=== PATIENT | female | born 1960 | race Caucasian/White ===

== ENCOUNTER → 2018-03-21 14:35 | Outpatient (CLI) | payer OTHER, SELFPAY ==
[2018-03-21 16:07] LABS: CRP < 2.90 mg/L (0.0-3.0)
[2018-03-23 16:10] LABS: Endomysial Antibody IgA Negative (Negative)
[2018-03-24 07:54] LABS: Immunoglobulin A 171 mg/dL (87-352); t-Transglutaminase IgA <2 U/mL (0-3)
== END ==
PROVIDERS: Visit Provider Internal Medicine Gastroenterology
DX: R19.7 Diarrhea, unspecified (principal)
CPT/HCPCS: 36415; 82784; 83516; 86140; 86255

== ENCOUNTER → 2023-10-16 | Outpatient (CLI) | payer MEDICARE, OTHER, SELFPAY ==
--- NOTE | 2023-10-16 14:24 | US_ITS ---
INDICATION: Postmenopausal bleeding -- Need before 10/23/23 EXAMINATION: Ultrasound US Pelvis Non OB Limited With Transvaginal Imaging TECHNIQUE: Transabdominal and transvaginal ultrasound was performed. Grayscale, spectral waveform, and color flow Doppler evaluation of the adnexa. COMPARISON: None. FINDINGS: UTERUS: 5.6 cm length. Fibroid anterior uterine body, 1.0 x 0.9 x 0.9 cm. ENDOMETRIUM: Not thickened. 0.3 cm. OVARIES: Not visualized. FREE FLUID: None. Bladder distended. Bladder volume 483 mL. US/Pelvic w/ Transvaginal IMPRESSION: Uterine fibroid. No endometrial thickening. Nonvisualized ovaries. Electronically Signed: Kim Zepeda MD at 7:57 EST ,
== END | disposition home or self-care (01) ==
LOC: US 14:21
PROVIDERS: PCP Family Medicine; Referring Provider Obstetrics & Gynecology; Visit Provider Obstetrics & Gynecology
DX: N95.0 Postmenopausal bleeding (principal)
CPT/HCPCS: 76830; 76856

== ENCOUNTER → 2023-10-23 | Outpatient (CLI) | payer MEDICARE, OTHER, SELFPAY ==
--- NOTE | 2023-10-23 15:00 | EMB_PTH ---
PATHOLOGY RESULTS PATIENT: KAREN LUQUE LOC: [facility] U#:[id number] AGE/SX: 63/F ROOM: RE10/23/[address]: Dr. Verito Slade MD : [id number] BED: DIS: 10/23/2023 SPEC #: [id number] RECD: 10/23/23 16:59 STATUS: VANESSA REMili #: [id number] BABS: 10/23/23 15:[address]: Verito Slade DEPT: SURGICAL PATHOLOGY RECD BY: Majo Trent ENTERED: 10/24/23 11:39 SP TYPE: ENDOM BX/C BATSHEVA DR: Dr. Virgilio Freeman MD Tissues: Endometrium, NOS Procedures: Surgery Specimen Level IV HEADER OPERATION: Endometrial biopsy PRE-OP DIAGNOSIS: Postmenopausal bleeding TISSUE SUBMITTED: Endometrial lining MICROSCOPIC DIAGNOSIS Endometrial biopsy: Scant minute fragments of glandular epithelium. See comment. JOHN:cinthya 10/25/2023 COMMENT Clinical correlation and appropriate follow up are necessary. MICROSCOPIC DESCRIPTION Slides are reviewed. GROSS DESCRIPTION Received is one container labeled with the patient's name and not further designated. The specimen consists of a scant amount of soft tissue. The specimen is totally submitted for cell block preparation. / JOHN:cinthya 10/24/2023 TC: Cannot code CPT: 39089
--- OUTSIDE RECORDS SUMMARY | 2023-10-23 17:25 | XMS RPT_ITS | CCD ---
Author Name Unknown Address [address] [place] [address] Organization [facility] Care Team Providers Care Merchandising Team Lead Name Role Phone John Ortez. Unavailable Unavailable Wood, Zafar C Unavailable Unavailable Wood, Zafar C Unavailable Unavailable Wood, Zafar C Unavailable Unavailable Wood, Zafar C Unavailable Unavailable John Ortez Unavailable Unavailable John Ortez Unavailable Unavailable John Ortez Unavailable Unavailable John Ortez Unavailable Unavailable John Ortez Unavailable Unavailable John Ortez Unavailable Unavailable Thomae, Carlos Manuel R Unavailable Unavailable Thomcarlos, Carlos Manuel R Unavailable Unavailable John Ortez Unavailable Unavailable Kannan, Toya Unavailable Unavailable John Ortez Unavailable Unavailable Kannan, Toya Unavailable Unavailable John Ortez Unavailable Unavailable Wietecha Abhishek G Unavailable Unavailable Wietecha, Abhishek G Unavailable Unavailable John Ortez Unavailable Unavailable WiAbhishek sr G Unavailable Unavailable WiSha srin G Unavailable Unavailable John Ortez Unavailable Unavailable Wietecha Abhishek G Unavailable Unavailable Wietecha, Abhishek G Unavailable Unavailable John Ortez Unavailable Unavailable Wietecha, Abhishek G Unavailable Unavailable Wietecha, Abhishek G Unavailable Unavailable John Ortez Unavailable Unavailable Wietecha, Abhishek G Unavailable Unavailable Wietecha, Abhishek G Unavailable Unavailable John Ortez Unavailable Unavailable DARMMEHNAZ JORDAN Attending Unavailable SELF, SELF Referring Unavailable DARMMEHNAZ JORDAN M Attending Unavailable SELF, SELF Referring Unavailable JOHN ORTEZ Attending Unavailable JOHN ORTEZ Referring Unavailable DARMMEHNAZ JORDAN Attending Unavailable SELF, SELF Referring Unavailable Abhishek Lowe Unavailable Unavailable Update Needed Unavailable Unavailable Marino Benson Unavailable Unavailable John Ortez Primary Care Provider John Ortez MD Primary Care Provider Virgilio Wilkinson Unavailable Unavailable Unavailable Virgilio Wilkinson MD Primary Care Provider JOHN ORTEZ Primary Care Unavailable MARCO MONTANO Attending Unavailable John Ortez MD Primary Care Provider ROSALBA GAVIN Attending Unavailable VIRGILIO WILKINSON Primary Care Unavailable VIRGILIO WILKINSON Attending Unavailable VIRGILIO WILKINSON Primary Care Unavailable John Otrez MD Primary Care Provider JOHN ORTEZ Referring Unavailable JOHN ORTEZ Primary Care Unavailable MEHNAZ MCMAHON Attending Unavailable VIRGILIO WILKINSON Primary Care Unavailable VIRGILIO WILKINSON Primary Care Unavailable VIRGILIO WILKINSON Primary Care Unavailable VIRGILIO WILKINSON Primary Care Unavailable Allergies Allergy Classification Reported Allergen(s) Allergy Type Date of Onset Reaction(s) Facility (13 sources) topiramate; Translations: [Topamax] Drug Allergy 5 Nausea and Vomiting, Unknown [facility] (12 sources) Amitriptyline; Translations: [amitriptyline] Drug Allergy 7 Dizziness, Dizzy/Vertigo [facility] Repository (2 sources) topiramate; Translations: [Topamax] Drug Allergy [facility] Rep[facility] (1 source) No Known Medication Allergies; Translations: [No Known Medication Allergies] Propensity to adverse reactions to drug (disorder) [facility] (10 sources) Bacitracin; Translations: [bacitracin] Drug Allergy [address] [facility] (5 sources) fexofenadine; Translations: [FEXOFENADINE] Drug Allergy 1 Dizzy/Vertigo, Dizziness [facility] (9 sources) pregabalin; Translations: [Lyrica CAPS] Drug Allergy [address] [facility] (10 sources) SUMAtriptan; Translations: [Imitrex] Drug Allergy 0 Rash, Other, Nausea Only, Palpitations [facility] (2 sources) Neomycin-Bacitr acin Zn-Polymyx Propensity to adverse reactions to drug 8 [employer] [facility] (4 sources) Bacitracin / Neomycin / Polymyxin B; Translations: [Neosporin OINT] Drug Allergy [facility] Work Phone: (3 sources) Bacitracin / Polymyxin B; Translations: [BACITRACIN ZINC-POLYMYXIN B] Drug Allergy [address] [facility] Work Phone: (1 source) Pregabalin Propensity to adverse reactions to drug 1 [employer] [facility] (1 source) Topiramate Propensity to adverse reactions to drug [address] [facility] Medications Current Medications Medication Drug Class(es) Dates Sig (Normalized) Sig (Original) Alpha-Lipoic Acid (LIPOIC ACID PO) (1 source) Alpha-Lipoic Aci d (LIPOIC ACID PO) Take by mouth. 0 Active amitriptyline hydrochloride 50 mg oral tablet (3 sources) Tricyclic Antidepressant Start: 08-13-2015 amitriptyline (ELAVIL) 50 MG tablet ascorbic acid 500 mg oral tablet (8 sources) Vitamin C Start: 11-02-2019 take 1 tablet by mouth once daily ascorbic acid (Vitamin C) 500 mg tablet Take 1 tablet (500 mg) by mouth once daily. 0 11/02/2019 Active Completed/Discontinued Medications Medication Drug Class(es) Dates Sig (Normalized) Sig (Original) calcium carbonate 1500 mg / cholecalciferol 200 unt oral tablet (5 sources) Vitamin D Start: 11-02-2019 End: 04-10-2023 take 1 tablet by mouth once daily calcium carbonate-vitamin D3 600 mg-5 mcg (200 unit) tablet Take 1 tablet by mouth once daily. 0 11/02/2019 04/10/2023 Discontinued (Therapy completed) ketorolac tromethamine 10 mg oral tablet (1 source) Nonsteroidal Anti-inflammatory Drug, Cyclooxygenase Inhibitor Start: 09-10-2019 take 1 tablet by mouth once daily as needed for pain Ketorolac Tromethamine 10 MG Oral Tablet TAKE 1 TAB DAILY NEEDED FOR PAIN Quantity: 12 Refills: 2 Marino Benson MD Start : 10-Sep-2019 Active meclizine hydrochloride 12.5 mg oral tablet (4 sources) Antiemetic Start: 12-24-2021 take 1 tablet by mouth three times daily as needed Meclizine HCl - 12.5 MG Oral Tablet TAKE 1 TABLET 3 TIMES DAILY NEEDED. Quantity: 30 Refills: 2 Ordered: 24-Dec-2021 Virgilio Wilkinson MD Start : 24-Dec-2021 Active pregabalin 50 mg oral capsule (1 source) take 1 capsule by mouth three times daily Pregabalin 50 MG Oral Capsule TAKE 1 CAPSULE 3 times daily Quantity: 90 Refills: 2 Marino Benson MD Active SUMAtriptan 50 mg oral tablet (1 source) Serotonin-1b and Serotonin-1d Receptor Agonist take 1 tablet by mouth every two hours SUMAtriptan Succinate 50 MG Oral Tablet TAKE 1 TABLET FOR MIGRAINE RELIEF. MAY REPEAT EVERY 2 HOURS. MAX 200MG/DAY. Quantity: 12 Refills: 0 Active Problems Active Problems Problem Classification Problem Date Documented Da te Episodic/Chronic Conditions associated with dizziness or vertigo (5 sources) Benign paroxysmal positional vertigo; Translations: [Benign paroxysmal positional vertigo] Onset: 05-12-2023 05-12-2023 Episodic Headache; including migraine (18 sources) Migraine; Translations: [Chronic intractable migraine without aura] Onset: 07-31-2015 08-02-2017 Chronic Headache; including migraine (9 sources) Cervicogenic headache; Translations: [Headache] Episodic Nutritional deficiencies (3 sources) Vitamin D deficiency; Translations: [Vitamin D deficiency, unspecified] Onset: 07-28-2023 07-21-2023 Chronic Other connective tissue disease (5 sources) Myofascial pain; Translations: [Myalgia and myositis, unspecified] Episodic Other connective tissue disease (5 sources) Fibromyalgia; Translations: [Myalgia and myositis, unspecified] Onset: 05-12-2023 05-12-2023 Episodic Other connective tissue disease (2 sources) Muscle pain; Translations: [Myalgia, unspecified site] 04-10-2023 Episodic Other connective tissue disease (2 sources) Myalgia, unspecified site; Translations: [Myalgia, unspecified site] Onset: 04-10-2023 Episodic Other ear and sense organ disorders (2 sources) Impacted cerumen, right ear; Translations: [Impacted cerumen, right ear] Onset: 05-16-2023 Episodic Other ear and sense organ disorders (1 source) Impacted cerumen in right ear; Translations: [Impacted cerumen, right ear] 05-16-2023 Episodic Other nervous system disorders (2 sources) Dysesthesia; Translations: [Other disturbances of skin sensation] Onset: 05-24-2023 05-24-2023 Episodic Other nervous system disorders (4 sources) Other disturbances of skin sensation; Translations: [Other disturbances of skin sensation] Onset: 05-24-2023 Episodic Other upper respiratory disease (2 sources) Other specified disorders of nose and nasal sinuses; Translations: [Other specified disorders of nose and nasal sinuses] Onset: 05-16-2023 Episodic Other upper respiratory disease (1 source) Nasal discharge; Translations: [Other specified disorders of nose and nasal sinuses] 05-16-2023 Episodic Poisoning by other medications and drugs (7 sources) Poisoning by vitamin D; Translations: [Poisoning by vitamins, accidental (unintentional), initial encounter] Onset: 08-26-2021 Episodic Residual codes; unclassified (5 sources) Obstructive sleep apnea of adult; Translations: [Obstructive sleep apnea (adult)(pediatric)] Onset: 05-12-2023 05-12-2023 Chronic Spondylosis; intervertebral disc disorders; other back problems (4 sources) Neck pain; Translations: [Cervicalgia] Episodic Thyroid disorders (12 sources) Hypothyroidism; Translations: [Acquired hypothyroidism] Onset: 07-19-2018 Chronic Unclassified (4 sources) Thyroid Problem; Translations: [Thyroid Problem] Onset: 12-06-2018 Unclassified (2 sources) New Patient; Translations: [New Patient] Onset: 07-19-2018 Past or Other Problems Problem Classification Problem Date Documented Da te Episodic/Chronic Diabetes mellitus without complication (5 sources) Hyperglycemia; Translations: [Hyperglycemia, unspecified] Onset: 04-10-2023 04-10-2023 Episodic Genitourinary symptoms and ill-defined conditions (8 sources) Lower urinary tract symptoms; Translations: [Unspecified symptoms and signs involving the genitourinary system] Onset: 04-10-2023 04-10-2023 Episodic Other bone disease and musculoskeletal deformities (3 sources) Postmenopausal osteopenia; Translations: [Other specified disorders of bone density and structure, unspecified site] Onset: 07-19-2018 07-19-2018 Episodic Other gastrointestinal disorders (2 sources) Diarrhea; Translations: [Diarrhea] Onset: 02-16-2018 Episodic Sprains and strains (3 sources) Strain of rotator cuff capsule; Translations: [Strain of rotator cuff of shoulder] Onset: 11-06-2015 11-06-2015 Episodic Unclassified (2 sources) Onset: 04-10-2023 04-10-2023 Results Test Name Value Interpretation Reference Range Facil ity Vital Signs Date Time Vital Sign Value Performing Clinician Facility 07-21-2023 13:30-0400 Body height 160 cm Mehnaz Mcmahon MD Work Phone: [facility] 07-21-2023 13:30-0400 Body mass index (BMI) [Ratio] 22.72 kg/m2 Mehnaz Mcmahon MD Work Phone: [facility] 07-21-2023 13:30-0400 Body weight 58.15 kg Mehnaz Mcmahon MD Work Phone: [facility] [employer] [facility] 07-21-2023 13:30-0400 Diastolic blood pressure 64 mm[Hg] Mehnaz Mcmahon MD Work Phone: [facility] [employer] [facility] 07-21-2023 13:30-0400 Heart rate 70 /min Mehnaz Mcmahon MD Work Phone: [facility] 07-21-2023 13:30-0400 Respiratory rate 16 /min Mehnaz Mcmahon MD Work Phone: [facility] [employer] [facility] 07-21-2023 13:30-0400 Systolic blood pressure 120 mm[Hg] Mehnaz Mcmahon MD Work Phone: [facility] 05-24-2023 08:33-0400 Body mass index (BMI) [Ratio] 21.63 kg/m2 Virgilio Wilkinson MD Work Phone: [facility] 05-24-2023 08:33-0400 Body weight 57.15 kg Virgilio Wilkinson MD Work Phone: [facility] 05-24-2023 08:33-0400 Diastolic blood pressure 74 mm[Hg] Virgilio Wilkinson MD Work Phone: [facility] 05-24-2023 08:33-0400 Heart rate 73 /min Virgilio Wilkinson MD Work Phone: [facility] 05-24-2023 08:33-0400 SaO2% (BldA) [Mass fraction] 97 % Virgilio Wilkinson MD Work Phone: [facility] 05-24-2023 08:33-0400 Systolic blood pressure 122 mm[Hg] Virgilio Wilkinson MD Work Phone: [facility] 05-16-2023 14:54-0400 Body height 160 cm Marco Montano MD Work Phone: [facility] 05-16-2023 14:54-0400 Body mass index (BMI) [Ratio] 22.5 kg/m2 Marco Montano MD Work Phone: [facility] 05-16-2023 14:54-0400 Body temperature 98.2 [degF] Marco Montano MD Work Phone: [facility] 05-16-2023 14:54-0400 Body weight 57.61 kg Marco Montano MD Work Phone: [facility] 04-10-2023 15:03-0400 Body height 162.6 cm Rosalba Stentz PA-C Work Phone: [facility] 04-10-2023 15:03-0400 Body mass index (BMI) [Ratio] 22.31 kg/m2 Rosalba Stentz PA-C Work Phone: [facility] 04-10-2023 15:03-0400 Body temperature 98.4 [degF] Rosalba Stentz PA-C Work Phone: [facility] 04-10-2023 15:03-0400 Body weight 58.97 kg Rosalba Stentz PA-C Work Phone: [facility] 04-10-2023 15:03-0400 Diastolic blood pressure 68 mm[Hg] Rosalba Stentz PA-C Work Phone: [facility] 04-10-2023 15:03-0400 Heart rate 63 /min Rosalba Stentz PA-C Work Phone: [facility] 04-10-2023 15:03-0400 Systolic blood pressure 124 mm[Hg] Rosalba Stentz PA-C Work Phone: [facility] 01-07-2022 08:04-0400 Body height 160 cm Mehnaz Mcmahon MD Work Phone: [facility] 01-07-2022 08:04-0400 Body mass index (BMI) [Ratio] 23.96 kg/m2 Mehnaz Mcmahon MD Work Phone: [facility] 01-07-2022 08:04-0400 Body weight 61.33 kg Mehnaz Mcmahon MD Work Phone: [facility] 01-07-2022 08:04-0400 Diastolic blood pressure 64 mm[Hg] Mehnaz Mcmahon MD Work Phone: [facility] 01-07-2022 08:04-0400 Heart rate 70 /min Mehnaz Mcmahon MD Work Phone: [facility] 01-07-2022 08:04-0400 Respiratory rate 15 /min Mehnaz Mcmahon MD Work Phone: [facility] 01-07-2022 08:04-0400 Systolic blood pressure 133 mm[Hg] Mehnaz Mcmahon MD Work Phone: [facility] 09-10-2019 16:28-0500 BMI (Body Mass Index) 23.91 kg/m2 [facility]ino [facility]par [facility] Work Phone: 09-10-2019 16:28-0500 Body weight 61.24 kg Marino Cunhaumbrajan [facility] Work Phone: 09-10-2019 16:28-0500 BP Diastolic 82 mm[Hg] Marino Zumbar [facility] Work Phone: 09-10-2019 16:28-0500 BP Systolic 144 mm[Hg] Marino Benson [facility] Work Phone: 09-10-2019 16:28-0500 BSA (Body Surface Area) 1.64 m2 Marino Cunhaumbar [facility] Work Phone: 09-10-2019 16:28-0500 Height 160.02 cm Marino Benson [facility] Work Phone: 09-10-2019 16:28-0500 Pulse (Heart Rate) 71 /min Marino Cunhaumbar [facility] Work Phone: 09-10-2019 16:28-0500 Respiratory Rate 16 /min Marino Cunhaumbar [facility] Work Phone: Encounters Encounter Date Encounter Type Care Provider Facility Start: 07-28-2023 End: 07-29-[address] [facility] Start: 07-21-2023 ambulatory JOHN House [facility] Start: 07-21-2023 End: 07-21-2023 Office outpatient visit 25 minutes Mehnaz Mcmahon MD Work Phone: [facility] Procedures Date Procedure Procedure Detail Performing Clinician Start: 07-28-2023 Thyrotropin [Units/volume] in Serum or Plasma VIRGILIO WILKINSON Start: 07-28-2023 VITAMIN D 25-HYDROXY,TOTAL VIRGILIO WILKINSON Start: 07-21-2023 Follow-up visit Follow-up MEHNAZ MCMAHON Start: 07-04-2023 Thyrotropin [Units/volume] in Serum or Plasma VIRGILIO WILKINSON Start: 07-04-2023 THYROXINE, FREE VIRGILIO WILKINSON Start: 07-04-2023 TRIIODOTHYRONINE, FREE VIRGILIO WILKINSON Start: 05-24-2023 CBC W Auto Differential panel - Blood VIRGILIO WILKINSON Start: 05-24-2023 Comprehensive metabolic 2000 panel - Serum or Plasma VIRGILIO WILKINSON Start: 05-24-2023 Cyanocobalamin vitamin b-12 VIRGILIO WILKINSON Start: 05-24-2023 Magnesium [Mass/volume] in Serum or Plasma VIRGILIO WILKINSON Start: 05-08-2023 Thyrotropin [Units/volume] in Serum or Plasma Virgilio Wilkinson MD Work Phone: Start: 04-11-2023 Hemoglobin A1c/Hemoglobin.total in Blood VIRGILIO WILKINSON Start: 04-11-2023 INSULIN, FASTING VIRGILIO WILKINSON Start: 04-10-2023 Urnls dip stick/tablet rgnt auto w/o microscopy Rosalba Stentz PA-C Work Phone: Start: 03-27-2023 Thyrotropin [Units/volume] in Serum or Plasma Rosalba Stentz PA-C Work Phone: Start: 08-05-2022 Lipid 1996 panel - Serum or Plasma Justi n Stentmarcia PA-C Work Phone: Colonoscopy Virgilio Wilkinson Work Phone: Esophagogastroduodenoscopy Z achary Zumbar Jaw and temporomandi bular joint operations Marino Zumbar Laparoscopy Marino Zumbar Operative procedure on foot Marino Zumbar Tonsillectomy Marino Zumbar Plan of Treatment Date Care Activity Detail Author Start: 08-05-2027 Lipid panel Lipid Panel [facility] Start: 05-08-2024 Thyroid stimulating hormone measurement TSH Level [facility] Start: 04-11-2024 Diabetes mellitus screening Diabetes Screening [facility] Start: 04-11-2024 Hemoglobin A1c measurement Diabetes: Hemoglobin A1C [facility] Start: 03-27-2024 Thyroid stimulating hormone measurement TSH Level [facility] Start: 11-14-2023 Diabetes mellitus screening Diabetes Screening [facility] Start: 07-17-2023 End: 07-17-2023 Patient encounter procedure 07/17/2023 8:00 AM EDT Office Visit [facility] [address] [place] [address] Marco Montano MD [address] [place] [id number] [facility] Start: 05-26-2023 Influenza vaccination [facility] Start: 05-24-2023 End: 05-24-2024 CBC W Auto Differential panel - Blood CBC and Auto Differential Lab Routine Dysesthesia affecting both sides of body Expected: 05/24/2023 (Approximate), Expires: 05/24/2024 [facility] Service Area Work Phone: Immunizations Immunization Date Immunization Notes Care Provider Fa cili 08-05-2019 influenza virus vaccine, unspecified formulation Mehnaz Mcmahon MD Work Phone: [facility] Payers Date Payer Category Payer Medicare [id number] 2023 Medicare [id number] 2023 Unknown [id number] 2018 Unknown [id number] 2017 Unknown 2007 Unknown [employer] UPER[employer] PPO [id number] 2007-Present [id number] 1958 Unknown [id number] 2.16.840.1.956315.3.579.2. 1958 Unknown [id number] 2.16.840.1.825225.3.579.2 1958 Unknown [id number] 2.16.840.1.373673.3.579.2 1958 Unknown [id number] 2.16.840.1.037428.3.579.2. 1958 Unknown [id number] 2.16.840.1.954827.3.579.2. 1958 Unknown [id number] 2.16.840.1.937673.3.579.2.7 1958 Unknown [id number] 2.16.840.1.816782.3.579.2. 1958 Unknown [id number] 2.16.840.1.857654.3.579.2. 1958 Unknown [id number] 2.16.840.1.093497.3.579.2. 1958 Unknown [id number] 2.16.840.1.579577.3.579.2. 1958 Unknown [id number] 2.16.840.1.461992.3.579.2.98 1958 Unknown [id number] 2.16.840.1.414083.3.579.2.903 1958 Unknown [id number] 2.16.840.1.400970.3.579.2.1243 1958 Unknown [id number] 2.16.840.1.868035.3.579.2.1243 1958 Unknown [id number] 2.16.840.1.583275.3.579.2. 1958 Unknown [id number] 2.16.840.1.000705.3.579.2.1244 1958 Unknown [id number] 2.16.840.1.866021.3.579.2.1244 1958 Unknown [id number] 2.16.840.1.430040.3.579.2.1244 1958 Unknown [id number] [id number]44 Unknown [id number] Social History Date Type Detail Facility Start: 11-06-2015 End: 07-21-2023 Tobacco smoking status TXIS Never smoker [facility] Start: 1960 Sex Assigned At Not on file [facility] Start: 11-06-2015 End: 07-21-2023 Alcohol intake Current non-drinker of alcohol (finding) [facility] Start: 07-25-2017 End: 07-21-2023 Tobacco use and exposure Smokeless tobacco non-user [facility] Start: 01-07-2022 End: 04-10-2023 Never a smoker Never a smoker -[facility] Work Phone: Start: 01-07-2022 End: 04-10-2023 Tobacco use panel [facility] Work Phone: Start: 03-31-2023 End: 04-10-2023 Exposure to SARS-CoV-2 (event) Not sure [facility] Start: 05-24-2023 Alcohol intake Lifetime non-d oliva (finding) [facility] Work Phone: Start: 07-04-2017 Gender identity Identifies as female gender (finding) [facility] NEGATED: Highlighted row - - [facility] Work Phone: Functional Status Date Assessment Result Facility NEGATED: Highlighted row Functional performance Functional status health issues are not documented [facility] Work Phone: Mental Status Date Assessment Result Facility NEGATED: Highlighted row Cognitive function [Interpretation] Cognitive status health issues are not documented [facility] Work Phone: Clinical Notes 01-07-2022 to 07-21-2023 Dennyreji Raza - 07/21/2023 1:30 PM Bri Mcmahon MD - 07/21/2023 1:30 PM Nate Wilkinson MD - 05/24/2023 8:30 AM Marco Verde MD - 05/16/2023 3:52 PM EDT Note Date & Type Note Facility 07-21-2023 History of Present illness Narrative Nurse Note: Review of Systems Constitutional: Positive for fatigue (SAME). Negative for diaphoresis and unexpected weight change. HENT: Negative for trouble swallowing and voice change. Eyes: Negative for pain and visual disturbance. Respiratory: Negative for cough and shortness of breath. Cardiovascular: Positive for palpitations (same). Negative for chest pain and leg swelling. Gastrointestinal: Negative for constipation, diarrhea, nausea and vomiting. Endocrine: Positive for cold intolerance and heat intolerance. Negative for polydipsia and polyuria. Musculoskeletal: Negative for back pain and neck pain. Neurological: Positive for numbness. Negative for tremors. Psychiatric/Behavioral: Negative for sleep disturbance. The patient is nervous/anxious. Nursing Assessment: Physical Exam Subjective History of Present Illness Hypothyroidism- This is a follow up visit to the office. She had been taking desiccated thyroid hormone since 2001. She previously took Kathleen thyroid 60 mg daily. She has never tried levothyroxine, we moved her to levothyroxine. We eventually changed to Tirosint, she states she feels well on the agent. Her about a year ago, eventually she discontinued levothyroxine over the summer, TSH elevated towards 8-11, and she felt subjective worsening. She restarted Tirosint through another provider, has been increasing the doses every 3-4 weeks, last dose increase was from 75 mcg daily to 88 mcg daily, she is been on that dose for the past 4 weeks with subjective improvement, TSH = 2.14. Osteopenia/vitamin D toxicity- She is taking 4000 units of Vitamin D twice daily. No history of parental hip fracture. Her mother does have osteopenia. Previous Dexa scan was performed in May 2017 showing a -1.1 T-score. Previous vitamin D level 34 ng/mL. last 25-hydroxy vitamin D level elevated at 107 ng/mL, we had her discontinue vitamin D, it appears she is still taking 2000 international units daily, 25-hydroxy vitamin D level has decreased to 90 ng/mL. Concern for type 2 diabetes: Her main concern today is possibility of type 2 diabetes. She did go through a issue where she had polyuria/polydipsia. Hemoglobin A1c was 5.6% with a fasting blood sugar of 91 mg/dL. No family history Objective Review of Systems Vitals: Blood pressure 120/64, pulse 70, resp. rate 16, height 1.6 m (5' 2.99 ), weight 58.2 kg (128 lb 3.2 oz). Nurse Note: Review of Systems Constitutional: Negative for chills, fatigue, fever and unexpected weight change. HENT: No difficulty swallowing No change in voice Respiratory: Negative for cough, shortness of breath and wheezing. Cardiovascular: Negative for chest pain and palpitations. Gastrointestinal: Positive for diarrhea. Negative for constipation, nausea and vomiting. Musculoskeletal: Positive for neck pain. Neurological: Negative for tremors. Psychiatric/Behavioral: Negative for sleep disturbance. The patient is nervous/anxious. Nursing Assessment: (Previous physical exam; not repeated due to telephone follow-up) Physical Exam Constitutional: General: She is not in acute distress. Appearance: She is not diaphoretic. HENT: Head: Normocephalic. Pulmonary: Effort: Pulmonary effort is normal. No respiratory distress. Breath sounds: No wheezing. Neurological: Mental Status: She is alert and oriented to person, place, and time. Psychiatric: Judgment: Judgment normal. Neurological Exam Mental Status Alert. Oriented to person, place, and time. Assessment and Plan Hypothyroidism- we will continue Tirosint to 88 g daily and reassess in 2 weeks, as that will be a full 6 weeks on the 88 mcg of Tirosint. We will telephone initial results. Vitamin D toxicity vitamin-D level was exceedingly high at 90 ng/mL, and she is still taking vitamin-D, I am quite concerned about the possibility of vitamin-D toxicity/poisoning. Would redraw twenty-five hydroxy vitamin-D with next blood draw and telephone with initial results. Have advised he discontinue vitamin-D for the near term. Concern for type 2 diabetes: Discussed with patient that she does not have markers for insulin resistance, no acanthosis, no family history of significant diabetes, at this point I doubt she has significant risk factors for future diabetes, she definitely does not have diabetes now. Patient reassured. documented in this encounter [facility] 05-24-2023 History of Present illness Narrative Subjective Patient ID: Cecelia Sofia is a 63 y.o. female who presents for evaluate (Pain and severe cramping in legs, burning under arms and chest, discuss A1c and Insulin labs). HPI Leg cramps in shins not calves. Whole leg hurts including feet. No numbness but some tingling and buzzing. About 3 weeks ago. Wonders if due to house spray for bugs. She waited for an hour afterwards. She got intense burning inside afterwards. Still has some of that with some night sweats. Was SOB first week with nausea and diarrhea. Heart pounding. No wheezing or fever or chills Still some quivering inside PND was worse than usuall Had sciatica in 2011 that was different Able to sleep with flexeril at hs. But a cramp can still wake her None for a few days Gabapentin in the past for symptoms after a concussion in 2014. Still has issues from that including noise and light sensitivity. When active she will get fatigued and nauseated No focal weakness or numbness. Recent thyroid profile looks good. She did recently start on the Levothyroxine. Discussed A1C of 5.6 and Average glucose of 114 from that. Also insulin level of 5. All good. Just needs to watch is simple carbs, Review of Systems Objective BP 122/74 (BP Location: Left arm, Patient Position: Sitting) Pulse 73 Wt 57.2 kg (126 lb) SpO2 97% BMI 21.63 kg/m Physical Exam Vitals reviewed. Constitutional: General: She is not in acute distress. Appearance: Normal appearance. HENT: Head: Normocephalic. Right Ear: Tympanic membrane normal. Left Ear: Tympanic membrane normal. Nose: Nose normal. Mouth/Throat: Pharynx: Oropharynx is clear. Eyes: Extraocular Movements: Extraocular movements intact. Conjunctiva/sclera: Conjunctivae normal. Pupils: Pupils are equal, round, and reactive to light. Neck: Vascular: No carotid bruit. Cardiovascular: Rate and Rhythm: Normal rate and regular rhythm. Pulses: Normal pulses. Heart sounds: Normal heart sounds. No murmur heard. Pulmonary: Effort: Pulmonary effort is normal. No respiratory distress. Breath sounds: Normal breath sounds. Abdominal: General: Abdomen is flat. Bowel sounds are normal. There is no distension. Palpations: Abdomen is soft. There is no mass. Tenderness: There is no abdominal tenderness. Musculoskeletal: Cervical back: Normal range of motion and neck supple. No tenderness. Lymphadenopathy: Cervical: No cervical adenopathy. Skin: General: Skin is warm and dry. Findings: No rash. Neurological: General: No focal deficit present. Mental Status: She is alert and oriented to person, place, and time. Cranial Nerves: Cranial nerves 2-12 are intact. Sensory: Sensation is intact. Motor: Motor function is intact. Coordination: Coordination is intact. Glsdwb-Omia-Jqriig Test normal. Deep Tendon Reflexes: Reflexes are normal and symmetric. Psychiatric: Mood and Affect: Mood normal. Thought Content: Thought content normal. Judgment: Judgment normal. Assessment/Plan Problem List Items Addressed This Visit Dysesthesia affecting both sides of body - Primary Relevant Medications gabapentin (Neurontin) 100 mg capsule Other Relevant Orders CBC and Auto Differential Comprehensive Metabolic Panel Magnesium Vitamin B12 Other Visit Diagnoses Muscle pain Relevant Medications cyclobenzaprine (Flexeril) 10 mg tablet This seems to be a consequence of the neurotoxin in the bug spray given underlying neurologic issues. Will try gabapentin that hopefully will be temporary. documented in this encounter [facility] Work Phone: 05-16-2023 History of Present illness Narrative [facility] [address] [facility] [place] [address] [facility] [id number] Dept: [phone] MD Cecelia Kaufman 63 y.o. female Patient presents with a chief complaint of Consult (Headache, drainage, ringing in ears) Temp 98.2 F (36.8 C) Ht 5' 3 Wt 57.6 kg (127 lb) BMI 22.50 kg/m History of Presenting Illness: The patient/caregiver reports a history of complaint with the following features: Onset: started 2014 after concussion Timing: usually occurs at night or in morning Duration: several years, recently improved in last 2 weeks Quality: nasal discharge Location: both nostrils Severity: pain moderate, forehead area Risk factors: prior concussion Alleviating factors: nothing makes it better, intolerant of oral antihistamines, tried Nasalcrom for a bit Aggravating factors: air travel worsened symptoms Associated factors: no nosebleeds 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 She has extreme photophobia. She complains of recurrent episodes of sever fatigue, nausea. She reports that she did not feel that Imitrex helped, but she was on Lyrica at the same time. Review of systems covering 10 systems is reviewed and pertinent positives and negatives are noted as above. Past Medical History: Diagnosis Date Abdominal pain Anxiety Bronchitis Chest pain Concussion 2014 2022-still having symptoms Constipation Dizzy spells Numbness of arm SOB (shortness of breath) Thyroid disorder Tired Current Outpatient Medications: cyclobenzaprine (FLEXERIL) 10 MG tablet, , Disp: , Rfl: levothyroxine 50 mcg cap, Take by mouth ., Disp: , Rfl: multivitamin (THERAGRAN) per tablet, Take 1 (one) tablet by mouth daily ., Disp: , Rfl: selenium 50 mcg Tab, Take 1 (one) tablet (50 mcg total) by mouth daily ., Disp: , Rfl: tiZANidine (ZANAFLEX) 2 MG tablet, Take by mouth daily ., Disp: , Rfl: amitriptyline (ELAVIL) 50 MG tablet, , Disp: , Rfl: ARMOUR THYROID 30 mg tablet, , Disp: , Rfl: ARMOUR THYROID 60 mg tablet, Take 1 (one) tablet (60 mg total) by mouth daily Reasons: takes 2 60 mg tablets at night., Disp: , Rfl: azelastine (ASTELIN) 137 mcg (0.1 %) nasal spray, 1 (one) spray by Each Nare route 2 (two) times a day ., Disp: 30 mL, Rfl: 12 divalproex (DEPAKOTE) 500 MG 24 hr tablet, , Disp: , Rfl: gabapentin (NEURONTIN) 300 MG capsule, , Disp: , Rfl: Allergies Allergen Reactions Topamax [Topiramate] Past Surgical History: Procedure Laterality Date FOOT SURGERY Bilateral HAND SURGERY drain infection MANDIBLE SURGERY TONSILLECTOMY Social History Socioeconomic History Marital status: Tobacco Use Smoking status: Never Substance and Sexual Activity Alcohol use: No Family History Problem Relation Age of Onset Cancer Father Heart attack Maternal Grandfather PHYSICAL EXAM: The patient was examined today 05/18/2023 with findings as follows: CONSTITUTIONAL: General Appearance: well-appearing, nontoxic, alert, no acute distress Communication: understanding at normal conversational tones, normal voicing, speech intelligible HEAD/FACE: Head: atraumatic, normocephalic, no lesions Facial Inspection: no lesions, healthy skin Facial Strength: motor strength normal, symmetric strength, symmetric movement Sinuses: no sinus tenderness Salivary Glands: no enlargements of parotid glands, no tenderness of parotid glands, no masses of parotid glands, clear salivary flow on palpation from Stensen's ducts, no duct stones of Stensen's duct, no enlargement of submandibular glands, no tenderness of submandibular glands, no masses of submandibular glands, clear salivary flow from Gabino's ducts, no stones of Gabino's ducts Temporomandibular Joint: no crepitus with motion, no tenderness on palpation, no trismus, motion symmetric EYES: Pupils: PERRLA, extra-ocular movements intact, no nystagmus, sclera white, no redness of eyes, no watering of eyes EARS: Bilateral External Ears: no pits, no tags Right External Ear: normally formed, no lesions, no mastoid tenderness Left External Ear: normally formed, no lesions, no mastoid tenderness Right External Auditory Canal: normal, healthy skin, obstructing cerumen removed, no discharge Left External Auditory Canal: normal, healthy skin, no obstructing cerumen, no discharge Right Tympanic Membrane: normal landmarks, translucent, mobile to pneumatic otoscopy, no perforation Left Tympanic Membrane: normal landmarks, translucent, mobile to pneumatic otoscopy, no perforation Hearing: intact to spoken voice NOSE: Nasal Skin: no lesions, no lacerations, no scars Nasal Dorsum: symmetric with no visible or palpable deformities Nasal Tip: normal symmetric nasal tip, normal nasal valves Nasal Mucosa: normal, pink and moist Septum: not markedly deformed, midline, no exposed vessels, no bleeding, no septal granuloma Turbinates: normal size and conformation Nasopharynx: normal ORAL CAVITY/MOUTH: Lips, teeth, gums: normal lips, normal gums, dentition intact, no dental pain on palpation Oral Mucosa: normal, moist, no lesions Palate: normal hard palate, normal soft palate, symmetric palatal elevation Floor of Mouth: normal floor of mouth Tongue: normal tongue, no lesions, no edema, no masses, normal mucosa, mobile Tonsils: normal tonsils, symmetric, no lesions Posterior pharynx: normal NECK: Neck: no masses, trachea midline, normal range of motion, no cysts or pits, no tenderness to palpation Thyroid: normal thyroid, no enlargement, no tenderness, no nodules LYMPH NODES: Cervical: no palpable lymph node enlargement RESPIRATORY: Inspection/Auscultation: good air movement, chest expands symmetrically, normal breath sounds, no wheezing, no stridor CARDIOVASCULAR SYSTEM: Auscultation: regular rate and rhythm, carotid pulse normal, no carotid thrills, no carotid bruits Observation/Palpation of Peripheral Vascular System: no varicosities, no cyanosis, no edema SKIN: General Appearance: no lesions, warm and dry, normal turgor, no bruising NEUROLOGICAL SYSTEM: Orientation: oriented to time, oriented to place, oriented to person Cranial Nerves: Cranial Nerves II-XII intact, normal facial movement PSYCHIATRIC: Mood and affect: normal mood, anxious Assessment and Plan: She presents with complaints of persistent nasal discharge along with chronic headache following a concussion. She reports no history of skull fracture, although CSF leak is considered given her persistent clear discharge worse in the morning. She reports intolerance to oral treatments for allergies and topical treatments such as fluticasone or azelastine may be better tolerated. She declines steroid in preference for a nasal antihistamine, although we have discussed that combined use may have additive benefits. I see no disease of the middle ear space or nasal sinuses and reassurance is offered. She also describes symptoms suggestive of migraine. She may benefit from treatment in this regard. The patient and/or caregiver is advised on the nature and management of migraine. We have discussed potential dietary triggers of excess caffeine intake, wine, beer, and other alcohol, fermented meats and cheeses, and other foods that involve fermentation in their production and the benefits of avoidance of these foods. The use of a daily magnesium supplementation of 400 mg of magnesium oxide as a preventative treatment is recommended. Agents to stop a migraine once is has started, such as the [id number] agent of Excedrin migraine, or prescription medications and their strategies of use early in the onset of the migraine, but not more than three times weekly is discussed. Referral to neurology for further consultation if symptoms persist despite these treatment is also discussed. The patient and/or caregiver is able to state and understanding of these recommendations and is agreeable to the treatment plan. 1. Rhinorrhea Beta 2 Transferrin, Body Fluid azelastine (ASTELIN) 137 mcg (0.1 %) nasal spray 2. Impacted cerumen of right ear 3. Intractable chronic post-traumatic headache Return in about 3 months (around 08/16/2023). The patient and/or caregiver is to notify the office if no improvement or worsening of symptoms is noted prior to the scheduled follow-up for sooner evaluation. The patient and/or caregiver is able to state an understanding of these recommendations and is agreeable to the treatment plan. --Marco Montano MD on 05/18/2023 at 8:22 AM An electronic signature was used to authenticate this note. Review of Systems Constitutional: Negative. HENT: Positive for congestion, hearing loss, postnasal drip, sinus pressure, sinus pain and tinnitus. Eyes: Positive for photophobia. Respiratory: Negative. Cardiovascular: Negative. Gastrointestinal: Negative. Genitourinary: Negative. Musculoskeletal: Positive for myalgias. Skin: Negative. Allergic/Immunologic: Positive for environmental allergies. Neurological: Positive for headaches. Hematological: Negative. Psychiatric/Behavioral: Negative. documented in this encounter [facility] 04-10-2023 History of Present illness Narrative Subjective Patient ID: Cecelia Sofia is a 63 y.o. female who presents for pt c/o frequent urination x 3 days , pressure . HPI UTI: 4 days ago frequent urination all night, the next day with frequent urination. She does endorse chronic urgency. She is concerned with having undiagnosed DM2, endorses frequent urination, thirst, weight loss, some mild tingling her her toes. Review of Systems Constitutional: Negative. Respiratory: Negative. Cardiovascular: Negative. Gastrointestinal: Negative. Objective BP 124/68 Pulse 63 Temp 36.9 C (98.4 F) Ht 1.626 m (5' 4 ) Wt 59 kg (130 lb) BMI 22.31 kg/m Physical Exam Constitutional: General: She is not in acute distress. Appearance: Normal appearance. She is not ill-appearing. HENT: Head: Normocephalic and atraumatic. Eyes: Extraocular Movements: Extraocular movements intact. Conjunctiva/sclera: Conjunctivae normal. Cardiovascular: Rate and Rhythm: Normal rate. Pulmonary: Effort: Pulmonary effort is normal. Abdominal: General: There is no distension. Musculoskeletal: General: Normal range of motion. Cervical back: Normal range of motion. Skin: General: Skin is warm and dry. Neurological: General: No focal deficit present. Mental Status: She is alert and oriented to person, place, and time. Psychiatric: Mood and Affect: Mood normal. Behavior: Behavior normal. Thought Content: Thought content normal. Judgment: Judgment normal. Assessment/Plan IO UA unremarkable, will send for culture Advised she follow up with [facility] for overactive bladder/urgency We will order an A1C and fasting insulin, will call with results but highly unlikely she has undiagnosed DM2 Refilled her regular Flexeril for muscle pain as well She will call to schedule follow up documented in this encounter [facility] Work Phone: 01-07-2022 History of Present illness Narrative Nurse Note: Review of Systems Constitutional: Positive for fatigue and unexpected weight change. Negative for diaphoresis. HENT: Negative for trouble swallowing and voice change. Eyes: Negative for pain. Respiratory: Negative for cough and shortness of breath. Cardiovascular: Negative for chest pain, palpitations and leg swelling. Gastrointestinal: Negative for constipation and diarrhea. Endocrine: Negative for cold intolerance and heat intolerance. Musculoskeletal: Negative for neck pain. Neurological: Negative for tremors, weakness and numbness. Psychiatric/Behavioral: Negative for sleep disturbance. The patient is nervous/anxious. Nursing Assessment: Physical Exam History of Present Illness Hypothyroidism- This is a follow up visit to the office. She had been taking desiccated thyroid hormone since 2001. She previously took Kathleen thyroid 60 mg daily. Negative thyroid antibodies in 2017. Last thyroid ultrasound in March of 2017 was normal. She is complaining of fatigue, increased blood pressure, and Hair loss. She was complaining of diarrhea/loose stools/GI upset. That she has never tried levothyroxine, we moved her to levothyroxine. We eventually changed to Tirosint, she states she feels well on the agent. Has been taking 75 g daily, TSH at target 1.79, free T4 showing minor elevation to 1.23 ng/dL, total T4 also showing mild elevation to 11.3 mcg/dL, she does not take biotin. She is complaining of fatigue. She is complaining of weight gain, although body weight appears stable since 2018. Previously measured TPO AB came back at <6 with Thyroglobulin antibody of <1.0. Osteopenia/vitamin D toxicity- She is taking 4000 units of Vitamin D twice daily. No history of parental hip fracture. Her mother does have osteopenia. Previous Dexa scan was performed in May 2017 showing a -1.1 T-score. Previous vitamin D level 34 ng/mL. last 25-hydroxy vitamin D level elevated at 107 ng/mL, we had her discontinue vitamin D, it appears she is still taking 2000 international units daily, 25-hydroxy vitamin D level has decreased to 57 ng/mL. Review of Systems Vitals: Blood pressure 133/64, pulse 70, resp. rate 15, height 1.6 m (5' 2.99 ), weight 61.3 kg (135 lb 3.2 oz). Nurse Note: Review of Systems Constitutional: Negative for chills, fatigue, fever and unexpected weight change. HENT: No difficulty swallowing No change in voice Respiratory: Negative for cough, shortness of breath and wheezing. Cardiovascular: Negative for chest pain and palpitations. Gastrointestinal: Positive for diarrhea. Negative for constipation, nausea and vomiting. Musculoskeletal: Positive for neck pain. Neurological: Negative for tremors. Psychiatric/Behavioral: Negative for sleep disturbance. The patient is nervous/anxious. Nursing Assessment: (Previous physical exam; not repeated due to telephone follow-up) Physical Exam Constitutional: General: She is not in acute distress. Appearance: She is not diaphoretic. HENT: Head: Normocephalic. Pulmonary: Effort: Pulmonary effort is normal. No respiratory distress. Breath sounds: No wheezing. Neurological: Mental Status: She is alert and oriented to person, place, and time. Psychiatric: Judgment: Judgment normal. Neurological Exam Mental Status Alert. Oriented to person, place, and time. Assessment and Plan Hypothyroidism- we will continue Tirosint to 75 g daily and reassess in 6 months. She states that she may call interim to try lower levothyroxine dose, discussed with patient this may require another set of blood work, she verbalized understanding. Vitamin D toxicity no longer vitamin D toxic, she does continue with low-dose supplementation, we will reassess vitamin D with next visit to ensure she is not having back towards toxicity. documented in this encounter [facility] Lower urinary tract symptoms- Primary Other symptoms involving urinary system Muscle pain Unspecified myalgia and myositis Polyuria Elevated blood sugar Other abnormal glucose documented in this encounter [facility] Work Phone: Evaluation note* Diagnosis Rhinorrhea- Primary Other diseases of nasal cavity and sinuses Impacted cerumen of right ear Impacted cerumen Intractable chronic post-traumatic headache [facility] Diagnosis Dysesthesia affecting both sides of body- Primary Muscle pain Unspecified myalgia and myositis documented in this encounter [facility] Work Phone: Evaluation note* Diagnosis Acquired hypothyroidism- Primary Unspecified hypothyroidism Poisoning by vitamin D, accidental or unintentional, initial encounter Vitamin D deficiency Unspecified vitamin D deficiency [facility] Consultation (Routine) - Authorized Specialty Diagnoses / Procedures Referred By Contchristine t Referred To Contact Primary Care Diagnoses Dysesthesia affecting both sides of body Procedures Follow Up In Primary Care - Established Virgilio Wilkinson MD [address] [facility], [place] [address] Referral ID Status Reason Start Date Expiration Date V isits Requested Visits Authorized [id number] Authorized 05/24/2023 11/20/2023 1 1 [facility] Work Phone: Summary Purpose Family History No Family History Records Found Mother Name Dates Details Family history of hypertensi on(V17.49, Z82.49) Status:Active Father Name Dates Details Family history of leukemia(V 16.6, Z80.6) Status:Active Brother Name Dates Details Family history of asthma(V17 .5, Z82.5) Status:Active Unknown Family Member Name Dates Details Family history of leukemia: Father(V16.6, Z80.6) Status:Active Family history of asthma: Br other(V17.5, Z82.5) Status:Active Family history of hypertensi on: Mother(V17.49, Z82.49) Status:Active Family history of acute myoc ardial infarction: Mother(V17.3, Z82.49) Status:Active Unknown Family Member Name Dates Details Family history of leukemia: Father(V16.6, Z80.6) Status:Active Family history of asthma: Br other(V17.5, Z82.5) Status:Active Family history of hypertensi on: Mother(V17.49, Z82.49) Status:Active Family history of acute myoc ardial infarction: Mother(V17.3, Z82.49) Status:Active Unknown Family Member Name Dates Details Family history of leukemia: Father(V16.6, Z80.6) Status:Active Family history of asthma: Br other(V17.5, Z82.5) Status:Active Family history of hypertensi on: Mother(V17.49, Z82.49) Status:Active Family history of acute myoc ardial infarction: Mother(V17.3, Z82.49) Status:Active Unknown Family Member Name Dates Details Family history of leukemia: Father(V16.6, Z80.6) Status:Active Family history of asthma: Br other(V17.5, Z82.5) Status:Active Family history of hypertensi on: Mother(V17.49, Z82.49) Status:Active Family history of acute myoc ardial infarction: Mother(V17.3, Z82.49) Status:Active Advance Directives No Advanced Directives Records FoundNo Advanced Directives Records FoundNo Advanced Directives Records FoundNo Advanced Directives Records FoundNo Advanced Directives Records FoundNo Advanced Directives Records FoundNo Advanced Directives Records FoundNo Advanced Directives Records FoundNo Advanced Directives Records FoundNo Advanced Directives Records Found Additional Source Comments INFORMATION SOURCE (unrecogn ized section and content) DATE CREATED AUTHOR AUTHOR'S ORGANIZ ATION 09/14/2018 [facility] DATE CREATED AUTHOR AUTHOR'S ORGANIZ ATION 12/07/2018 [facility] DATE CREATED AUTHOR AUTHOR'S ORGANIZ ATION 12/27/2021 [employer] DATE CREATED AUTHOR AUTHOR'S ORGANIZ ATION 04/13/2023 [facility] DATE CREATED AUTHOR AUTHOR'S ORGANIZ ATION 05/09/2023 [facility] DATE CREATED AUTHOR AUTHOR'S ORGANIZ ATION 05/17/2023 [facility] DATE CREATED AUTHOR AUTHOR'S ORGANIZ ATION 05/25/2023 [facility] DATE CREATED AUTHOR AUTHOR'S ORGANIZ ATION [facility]20[facility] DATE CREATED AUTHOR AUTHOR'S ORGANIZ ATION 08/02/2023 [facility] Reason for Visit (unrecogniz ed section and content) Reason Comments pt c/o frequent urination x 3 days , pre ssure Reason Comments Consult Headache, drainage, ringing in ears Reason Comments evaluate Pain and severe cram ping in legs, burning under arms and chest, discuss A1c and Insulin labs Reason Comments Follow-up Thyroid Problem Care Teams (unrecognized sec tion and content) Merchandising Team Lead Relationship Specialty Start Date End Date Virgilio Wilkinson MD [address] [facility], [place] [address] PCP - General 12/24/21 Merchandising Team Lead Relationship Specialty Start Date End Date John Ortez MD PCP - General Internal Medicine 08/26/15 Merchandising Team Lead Relationship Specialty Start Date End Date Virgilio Wilkinson MD [address] [facility], [place] [address] [id number] PCP - General 12/24/21 Merchandising Team Lead Relationship Specialty Start Date End Date John Ortez MD PCP - General Internal Medicine 06/15/15 FOR RECORDS PERTAINING TO PATIENTS WHO ARE OR HAVE BEEN ENROLLED IN A CHEMICAL DEPENDENCY/SUBSTANCEABUSE PROGRAM, SOME INFORMATION MAY BE OMITTED. This clinical summary was aggregated from multiple sources. Caution should be exercised in using it in the provision of clinical care. This summary normalizes information from multiple sources, and as a consequence, information in this document may materially change the coding, format and clinical context of patient data. In addition, data may be omitted in some cases. CLINICAL DECISIONS SHOULD BE BASED ON THE PRIMARY CLINICAL RECORDS. [facility]. provides no warranty or guarantee of the accuracy or completeness of information in this document.
[2023-10-30 18:23] LABS: HPV Reflexed? NOT INDICATED
== END | disposition home or self-care (01) ==
PROVIDERS: PCP Family Medicine; Referring Provider Obstetrics & Gynecology; Visit Provider Obstetrics & Gynecology
DX: N95.0 Postmenopausal bleeding (principal); Z12.4 Encounter for screening for malignant neoplasm of cervix
CPT/HCPCS: 87070; 87205; 88175; 88305; G0145